=== PATIENT | male | born 1980 | race African-American/Black ===

== ENCOUNTER → 2017-02-08 | Outpatient (CLI) | payer OTHER | END | disposition home or self-care (01) | LOC: LABWHC1 12:45 | PROVIDERS: ATTEND Dermatology MOHS-Micrographic Surgery | DX: L74.510 Primary focal hyperhidrosis, axilla (principal); L29.0 Pruritus ani; L30.1 Dyshidrosis [pompholyx]; R68.82 Decreased libido | CPT/HCPCS: 36415; 84402; 84403; 84443 ==

== ENCOUNTER 2019-10-13 08:43 | Emergency (ER) | payer OTHER ==
[2019-10-13 08:50] VITALS: BP 124/79; PULSE 92; RESP 18; TEMP 98.6
--- NOTE | 2019-10-13 09:16 | ED ---
Psych HPI - General Chief Complaint: Psychiatric Symptoms Stated Complaint: Mental Health Time Seen by Provider: 10/13/19 08:50 Source: patient, RN notes reviewed Mode of arrival: ambulatory Limitations: no limitations - History of Present Illness Initial Comments: This a 39-year-old male presents emergency Department with chief complaint of depression. Patient states he has had depression for as long as he can remember. He states it is not suicidal and has had never had any suicidal ideations. Patient denies any homicidal. Patient states that he once had a concert but states she is late for his appointment so he was told he cannot be seen. Patient states he's never any medications. Denies any physical complaints. He does admit to marijuana use no other drug abuse. Denies any alcohol abuse. Patient states his depression has been worse recently because of a situation and his relationship with his significant other. - Related Data Home Medications Medication Instructions Recorded Confirmed Cetirizine HCl 10 mg PO DAILY 10/07/15 10/13/19 Multivitamins, Thera [Multivitamin 1 tab PO DAILY 10/13/19 10/13/19 (formulary)] Sildenafil Citrate 50 mg PO DAILY 10/13/19 10/13/19 Allergies Allergy/AdvReac Type Severity Reaction Status Date / Time Penicillins AdvReac Rash/Hives Verified 10/13/19 09:25 Review of Systems ROS Statement: Those systems with pertinent positive or pertinent negative responses have been documented in the HPI. ROS Other: All systems not noted in ROS Statement are negative. Past Medical History Past Medical History: No Reported History History of Any Multi-Drug Resistant Organisms: None Reported Past Surgical History: No Surgical Hx Reported Past Anesthesia/Blood Transfusion Reactions: No Reported Reaction Additional Past Anesthesia/Blood Transfusion Reaction / Comment(s): No surgery Smoking Status: Current every day smoker Past Alcohol Use History: Rare Past Drug Use History: Marijuana - Past Family History Mother Family Medical History: No Reported History General Exam Limitations: no limitations General appearance: alert, in no apparent distress Head exam: Present: atraumatic, normocephalic, normal inspection Eye exam: Present: normal appearance, PERRL, EOMI. Absent: scleral icterus, conjunctival injection, periorbital swelling ENT exam: Present: normal exam, normal oropharynx, mucous membranes moist Neck exam: Present: normal inspection, full ROM. Absent: tenderness, meningismus, lymphadenopathy Respiratory exam: Present: normal lung sounds bilaterally. Absent: respiratory distress, wheezes, rales, rhonchi, stridor Cardiovascular Exam: Present: regular rate, normal rhythm, normal heart sounds. Absent: systolic murmur, diastolic murmur, rubs, gallop, clicks Neurological exam: Present: alert, oriented X3, CN II-XII intact, reflexes normal. Absent: motor sensory deficit Psychiatric exam: Present: depressed, flat affect Skin exam: Present: warm, dry, intact, normal color. Absent: rash Course Vital Signs 10/13/19 08:46 Temperature 98.6 F Pulse Rate 92 Respiratory 18 Rate Blood Pressure 124/79 O2 Sat by Pulse 97 Oximetry Medical Decision Making - Medical Decision Making 39-year-old presented for evaluation depression evaluated be passing case discussed with psychiatrist who recommends outpatient treatment patient is not suicidal. Patient was set up with outpatient resources agrees upon discharge. Disposition Clinical Impression: Depression Disposition: HOME SELF-CARE Condition: Stable Instructions (If sedation given, give patient instructions): Depression (ED) Additional Instructions: Please return to the Emergency Department if symptoms worsen or any other concerns. Is patient prescribed a controlled substance at d/c from ED?: No Referrals: Marybel Dietz MD [Primary Care Provider] - 1-2 days Time of Disposition: 12:28
== END 2019-10-13 12:39 | disposition home or self-care (01) ==
LOC: EC 08:43
DX: F32.9 Major depressive disorder, single episode, unspecified (principal); F17.200 Nicotine dependence, unspecified, uncomplicated; F12.90 Cannabis use, unspecified, uncomplicated; Z88.0 Allergy status to penicillin
CPT/HCPCS: 82075; 99284

== ENCOUNTER 2019-12-18 14:32 | Emergency (ER) | payer OTHER ==
[2019-12-18 14:57] VITALS: BP 132/89; PULSE 79; RESP 18; TEMP 99.4
--- NOTE | 2019-12-18 15:05 | ED ---
Skin/Abscess/FB HPI - General Chief complaint: Skin/Abscess/Foreign Body Stated complaint: FB in ear Time Seen by Provider: 12/18/19 15:01 Source: patient Mode of arrival: ambulatory Limitations: no limitations - History of Present Illness Initial comments: Patient is 39-year-old male presenting to the emergency department with a chief complaint of ear foreign body. Patient states this occurred about half hour prior to arrival. Patient states he was cleaning his ear with a Q-tip when he pulled out the plastic piece, he noticed the top cotton part was missing. Patient states she does not have any pain or discharge from the left ear. Patient states there is only concern for foreign body. He denies any auditory changes. Denies any alleviating artery factors. - Related Data Home Medications Medication Instructions Recorded Confirmed Cetirizine HCl 10 mg PO DAILY 10/07/15 10/13/19 Multivitamins, Thera [Multivitamin 1 tab PO DAILY 10/13/19 10/13/19 (formulary)] Sildenafil Citrate 50 mg PO DAILY 10/13/19 10/13/19 Allergies Allergy/AdvReac Type Severity Reaction Status Date / Time Penicillins AdvReac Rash/Hives Verified 12/18/19 14:57 Review of Systems ROS Statement: Those systems with pertinent positive or pertinent negative responses have been documented in the HPI. ROS Other: All systems not noted in ROS Statement are negative. Past Medical History Past Medical History: No Reported History History of Any Multi-Drug Resistant Organisms: None Reported Past Surgical History: No Surgical Hx Reported Past Anesthesia/Blood Transfusion Reactions: No Reported Reaction Additional Past Anesthesia/Blood Transfusion Reaction / Comment(s): No surgery Past Psychological History: No Psychological Hx Reported Smoking Status: Current every day smoker Past Alcohol Use History: Rare Past Drug Use History: Marijuana - Past Family History Mother Family Medical History: No Reported History General Exam Limitations: no limitations General appearance: alert, in no apparent distress Head exam: Present: atraumatic, normocephalic, normal inspection Eye exam: Present: normal appearance, PERRL, EOMI Pupils: Present: normal accommodation ENT exam: Present: normal exam, normal oropharynx, mucous membranes moist, TM's normal bilaterally (No erythema, bulging or puncture to the tympanic membrane bilaterally.), normal external ear exam (No foreign body detected in both ears. No signs of otitis media. No erythema or swelling to the external auditory canal.) Neck exam: Present: normal inspection, full ROM. Absent: tenderness Respiratory exam: Present: normal lung sounds bilaterally. Absent: respiratory distress, wheezes Cardiovascular Exam: Present: regular rate, normal rhythm, normal heart sounds Extremities exam: Present: normal inspection, full ROM. Absent: tenderness Back exam: Present: normal inspection, full ROM. Absent: tenderness Neurological exam: Present: alert, oriented X3, normal gait Psychiatric exam: Present: normal affect, normal mood Skin exam: Present: warm, dry, intact, normal color Course Vital Signs 12/18/19 14:54 Temperature 99.4 F Pulse Rate 79 Respiratory 18 Rate Blood Pressure 132/89 O2 Sat by Pulse 99 Oximetry Medical Decision Making - Medical Decision Making patient is a 39-year-old male presenting to emergency with chief complaint of Q- tip stuck in left ear. Patient was suspecting to have a foreign body in his left ear. On physical exam, no foreign body was detected in the left external auditory canal. No signs of infection of any kind. Return parameters were discussed with patient is understanding and agreeable. Case discussed with physician. Disposition Clinical Impression: Discomfort of left ear Disposition: HOME SELF-CARE Condition: Stable Additional Instructions: Return to emergency department if symptoms worsen. Is patient prescribed a controlled substance at d/c from ED?: No Referrals: Marybel Dietz MD [Primary Care Provider] - 1-2 days Time of Disposition: 15:18
== END 2019-12-18 15:35 | disposition home or self-care (01) ==
LOC: EC 14:32
DX: T16.2XXA Foreign body in left ear, initial encounter (principal); F17.200 Nicotine dependence, unspecified, uncomplicated; Z79.899 Other long term (current) drug therapy; Z88.0 Allergy status to penicillin; X58.XXXA Exposure to other specified factors, initial encounter
CPT/HCPCS: 99282

== ENCOUNTER 2020-09-18 17:06 | Emergency (ER) | payer OTHER ==
[2020-09-18 17:17] VITALS: BP 125/75; PULSE 73; RESP 18; TEMP 98
[2020-09-18] MEDS ORDERED: KETOROLAC 15 MG/ML 1 ML VIAL IM STA (18:36)
--- NOTE | 2020-09-18 18:39 | ED ---
General Adult HPI - General Chief complaint: Back Pain/Injury Stated complaint: Back Pain Time Seen by Provider: 09/18/20 18:03 Source: patient Mode of arrival: ambulatory Limitations: no limitations - History of Present Illness Initial comments: Dictation was produced using [employer] dictation software. please excuse any grammatical, word or spelling errors. Chief Complaint: 40-year-old male presents emergency department for back pain. History of Present Illness: Patient is a 40-year-old male who presents to emergency department for a mild back pain. Patient states that his right lower back. Worse with extension standing up from a sitting position. At rest he does not have any symptoms. Patient had x-rays ordered by his primary care doctor. He has not gotten the results. She had these x-rays 1 hour prior to coming to the emergency room. Patient states he came to the emergency department because he did not feel well to go to work. He also with some symptom relief. Denies any saddle anesthesia. No urinary or stool incontinence. No fevers. The ROS documented in this emergency department record has been reviewed and confirmed by me. Those systems with pertinent positive or negative responses have been documented in the HPI. All other systems are other negative and/or noncontributory. PHYSICAL EXAM: General Impression: Alert and oriented x3, not in acute distress HEENT: Normocephalic atraumatic, extra-ocular movements intact, pupils equal and reactive to light bilaterally, mucous membranes moist. Cardiovascular: Heart regular rate and rhythm Chest: Able to complete full sentences, no retractions, no tachypnea Abdomen: abdomen soft, non-tender, non-distended, no organomegaly Musculoskeletal: Pulses present and equal in all extremities, no peripheral edema Motor: no focal deficits noted Neurological: CN II-XII grossly intact, no focal motor or sensory deficits noted Skin: Intact with no visualized rashes Psych: Normal affect and mood ED course: 40-year-old male presents to muscular skeletal back pain. No injury. No high-risk features. Vital signs upon arrival are within acceptable limits. X-rays which have been reviewed by radiology do not appear to show any acute processes. Patient given IM Toradol. He is given prescription for [place]. Patient given referral to a oncology rep specialist. Told to rest. Work note provided. - Related Data Home Medications Medication Instructions Recorded Confirmed Cetirizine HCl 10 mg PO DAILY 10/07/15 10/13/19 Multivitamins, Thera [Multivitamin 1 tab PO DAILY 10/13/19 10/13/19 (formulary)] Sildenafil Citrate 50 mg PO DAILY 10/13/19 10/13/19 Previous Rx's Medication Instructions Recorded HYDROcodone/APAP 5-325MG [[place] 1 tab PO Q6HR PRN 3 Days #12 tab 09/18/20 5-325] Allergies Allergy/AdvReac Type Severity Reaction Status Date / Time Penicillins AdvReac Rash/Hives Verified 09/18/20 17:17 Review of Systems ROS Statement: Those systems with pertinent positive or pertinent negative responses have been documented in the HPI. ROS Other: All systems not noted in ROS Statement are negative. Past Medical History Past Medical History: No Reported History History of Any Multi-Drug Resistant Organisms: None Reported Past Surgical History: No Surgical Hx Reported Past Anesthesia/Blood Transfusion Reactions: No Reported Reaction Additional Past Anesthesia/Blood Transfusion Reaction / Comment(s): No surgery Past Psychological History: No Psychological Hx Reported Smoking Status: Current every day smoker Past Alcohol Use History: Rare Past Drug Use History: Marijuana - Past Family History Mother Family Medical History: No Reported History General Exam Limitations: no limitations Course Vital Signs 09/18/20 17:14 Temperature 98 F Pulse Rate 73 Respiratory 18 Rate Blood Pressure 125/75 O2 Sat by Pulse 98 Oximetry Disposition Clinical Impression: Back pain Disposition: HOME SELF-CARE Condition: Fair Instructions (If sedation given, give patient instructions): Acute Low Back Pain (ED) Prescriptions: HYDROcodone/APAP 5-325MG [[place] 5-325] 1 tab PO Q6HR PRN 3 Days #12 tab PRN Reason: Severe Pain Is patient prescribed a controlled substance at d/c from ED?: Yes If prescribed controlled substance>3 days was MAPS reviewed?: Prescribed <3 Days Referrals: Stephen Kaba DO [Doctor of Osteopathic Medicine] - 1-2 days
[2020-09-18] MEDS ORDERED: LIDOCAINE 5% PATCH TOPICAL STA (18:43)
== END 2020-09-18 19:05 | disposition home or self-care (01) ==
LOC: EC 17:06
DX: M54.5 Low back pain (principal); F17.200 Nicotine dependence, unspecified, uncomplicated; Z88.0 Allergy status to penicillin
CPT/HCPCS: 96372 ×2; 99283 ×2; J1885

== ENCOUNTER → 2020-09-18 | Outpatient (CLI) | payer OTHER ==
--- NOTE | 2020-09-19 07:36 | XR ---
EXAMINATION TYPE: XR lumbosacral spine min 4V DATE OF EXAM: 09/18/2020 CLINICAL HISTORY: Low back pain TECHNIQUE: Frontal, lateral, and oblique images of the lumbar spine are obtained. COMPARISON: None FINDINGS: There are 5 lumbar type vertebral bodies identified. The lumbar spine shows satisfactory alignment without evidence of acute fracture or dislocation. Vertebral body heights and disk space he ights are within normal limits. The oblique images appear within normal limits. The overlying soft tissue appears unremarkable. IMPRESSION: No acute fracture or dislocation is seen in the lumbar spine.
== END | disposition home or self-care (01) ==
LOC: RADXRMAIN 16:12
PROVIDERS: ATTEND Family Medicine
DX: M54.5 Low back pain (principal)
CPT/HCPCS: 72110

== ENCOUNTER 2020-11-11 17:19 | Emergency (ER) | payer OTHER ==
[2020-11-11 17:24] VITALS: BP 157/92; PULSE 80; RESP 18; TEMP 98.3
[2020-11-11] MEDS ORDERED: DIPH,PERTUS(ACELL)TETVAC-LF 0.5 ML VIAL IM ONE (17:29)
[2020-11-11] MEDS ORDERED: LIDOCAINE 1% INJ 10MG/ML (20 ML MDV) SQ ONE (17:29)
--- NOTE | 2020-11-11 18:47 | ED ---
Wound/Laceration HPI - General Chief Complaint: Wound/Laceration Stated Complaint: Rt Hand Laceration Time Seen by Provider: 11/11/20 17:25 Source: patient, RN notes reviewed Mode of arrival: ambulatory Limitations: no limitations - History of Present Illness Initial Comments: Patient is a 40-year-old male that presents to the emergency department compl aining of right dorsal aspect thumb laceration. He notes that he punched labs prior to arrival. He did not know his tetanus vaccine status. Patient was in no apparent distress or pain while sitting up in bed during the exam interview. Patient was slightly agitated stating that he was frustrated. He denied any other issues or complaints. He did have full range of motion of his thumb. He denied any chest pain first breath headache nausea vomiting diarrhea constipation fever fatigue chills. - Related Data Home Medications Medication Instructions Recorded Confirmed Cetirizine HCl 10 mg PO DAILY 10/07/15 10/13/19 Multivitamins, Thera [Multivitamin 1 tab PO DAILY 10/13/19 10/13/19 (formulary)] Sildenafil Citrate 50 mg PO DAILY 10/13/19 10/13/19 Previous Rx's Medication Instructions Recorded HYDROcodone/APAP 5-325MG [[place] 1 tab PO Q6HR PRN 3 Days #12 tab 09/18/20 5-325] Sulfamethox-Tmp 800-160Mg [Bactrim 1 each PO Q12HR #20 tab 11/11/20 Ds] Allergies Allergy/AdvReac Type Severity Reaction Status Date / Time Penicillins AdvReac Rash/Hives Verified 09/18/20 17:17 Review of Systems ROS Statement: Those systems with pertinent positive or pertinent negative responses have been documented in the HPI. ROS Other: All systems not noted in ROS Statement are negative. Past Medical History Past Medical History: No Reported History History of Any Multi-Drug Resistant Organisms: None Reported Past Surgical History: No Surgical Hx Reported Past Anesthesia/Blood Transfusion Reactions: No Reported Reaction Additional Past Anesthesia/Blood Transfusion Reaction / Comment(s): No surgery Past Psychological History: No Psychological Hx Reported Smoking Status: Current every day smoker Past Alcohol Use History: Rare Past Drug Use History: Marijuana - Past Family History Mother Family Medical History: No Reported History General Exam Limitations: no limitations General appearance: alert, in no apparent distress Head exam: Present: atraumatic, normocephalic, normal inspection Eye exam: Present: normal appearance, PERRL, EOMI. Absent: scleral icterus, conjunctival injection, periorbital swelling Neck exam: Present: normal inspection Respiratory exam: Present: normal lung sounds bilaterally. Absent: respiratory distress, wheezes, rales, rhonchi, stridor Cardiovascular Exam: Present: regular rate, normal rhythm, normal heart sounds. Absent: systolic murmur, diastolic murmur, rubs, gallop, clicks GI/Abdominal exam: Present: soft, normal bowel sounds. Absent: distended, tenderness, guarding, rebound, rigid Extremities exam: Present: normal inspection, full ROM, normal capillary refill. Absent: tenderness, pedal edema, joint swelling, calf tenderness Neurological exam: Present: alert, oriented X3 Psychiatric exam: Present: normal affect, normal mood Skin exam: Present: warm, dry, intact, normal color. Absent: rash Expanded Type of lesion: Present: laceration (To the dorsal aspect of the hand just proximal left thumb approximately 3 cm) Course Vital Signs 11/11/20 17:20 Temperature 98.3 F Pulse Rate 80 Respiratory 18 Rate Blood Pressure 157/92 O2 Sat by Pulse 99 Oximetry Procedures - Laceration Laceration #1 Consent Obtained: verbal consent Indication: laceration Site: hand (Dorsal aspect of right hand just proximal the thumb) Description: flap Depth: simple, single layer Anesthetic Used: lidocaine 1% Anesthesia Technique: local infiltration Pre-repair: irrigated extensively Type of Sutures: nylon Size of Sutures: 5-0 Number of Sutures: 5 Technique: simple, interrupted Patient Tolerated Procedure: well, no complications Medical Decision Making - Medical Decision Making 40-year-old male complaining of laceration of dorsal aspect of the right hand area Tetanus vaccine, lidocaine ordered. Patient tolerated suturing well. Case discussed with Dr. Brown, patient discharge home with follow-up to primary care. Disposition Clinical Impression: Laceration Disposition: HOME SELF-CARE Condition: Stable Instructions (If sedation given, give patient instructions): Laceration (ED), Care For Your Stitches (ED) Additional Instructions: Please return to the Emergency Department if symptoms worsen or any other concerns. Please return in 7-10 days to have sutures removed. Keep areas clean and as dry as possible. Work note given. Follow-up with primary care as needed. Take Tylenol Motrin as needed for pain. Is patient prescribed a controlled substance at d/c from ED?: No Referrals: Marybel Dietz MD [Primary Care Provider] - 1-2 days Time of Disposition: 18:47
== END 2020-11-11 18:57 | disposition home or self-care (01) ==
LOC: EC 17:19
DX: S61.411A Laceration without foreign body of right hand, initial encounter (principal); F17.200 Nicotine dependence, unspecified, uncomplicated; Z88.0 Allergy status to penicillin; W25.XXXA Contact with sharp glass, initial encounter
CPT/HCPCS: 12002; 99284; 90471; 90715; J2001

== ENCOUNTER 2020-12-24 13:23 | Emergency (ER) | payer OTHER ==
[2020-12-24 13:30] VITALS: BP 129/84; PULSE 69; RESP 16; TEMP 98.5
--- NOTE | 2020-12-24 14:13 | ED ---
General Adult HPI - General Chief complaint: Extremity Problem,Nontraumatic Stated complaint: foot & finger pain Time Seen by Provider: 12/24/20 13:30 Source: patient Mode of arrival: ambulatory Limitations: no limitations - History of Present Illness Initial comments: 40-year-old male presents to the emergency room for chief complaint of sores on right foot and a rash on bilateral hands. Has had a rash on his hands for 2 weeks. States sometimes it is itchy. Patient states for quite some time he has had a fungal infection of his feet has been treating this with a clotrimazole cream through his mold filler. Patient is going to bio medical technician but that appointment is not for 2 weeks. Patient states that the blisters on the medial aspect of the right foot is painful. He denies fevers. Patient has no other complaints at this time including shortness of breath, chest pain, abdominal pain, nausea or vomiting, headache, or visual changes. - Related Data Home Medications Medication Instructions Recorded Confirmed Neomycin/Bacitracin/Polymyxinb 1 applic TOPICAL TID PRN 12/24/20 12/24/20 [Neosporin Ointment] Silver Sulfadiazine [SSD 1% Cream] 1 applic TOPICAL DAILY PRN 12/24/20 12/24/20 Previous Rx's Medication Instructions Recorded Doxycycline [Vibramycin] 100 mg PO BID 10 Days #20 cap 12/24/20 Hydrocortisone Cream 1 applic TOPICAL TID 5 Days #28 gm 12/24/20 [Hydrocortisone 1% Cream] Allergies Allergy/AdvReac Type Severity Reaction Status Date / Time Penicillins Allergy Rash/Hives Verified 12/24/20 14:01 Review of Systems ROS Statement: Those systems with pertinent positive or pertinent negative responses have been documented in the HPI. ROS Other: All systems not noted in ROS Statement are negative. Past Medical History Past Medical History: No Reported History History of Any Multi-Drug Resistant Organisms: None Reported Past Surgical History: No Surgical Hx Reported Past Anesthesia/Blood Transfusion Reactions: No Reported Reaction Additional Past Anesthesia/Blood Transfusion Reaction / Comment(s): No surgery Past Psychological History: No Psychological Hx Reported Smoking Status: Current every day smoker Past Alcohol Use History: Rare Past Drug Use History: Marijuana - Past Family History Mother Family Medical History: No Reported History General Exam - General Exam Comments Initial Comments: right foot: patient has vesicular changes medial aspect of the right foot. minimal surrounding erythema. DP Pulse 2+, cap refill < 2 seconds. Bilat hands: papular rash noted on the dorsal consistent with dishydrotic eczema. Limitations: no limitations General appearance: alert, in no apparent distress Head exam: Present: atraumatic Eye exam: Present: normal appearance, PERRL, EOMI. Absent: scleral icterus, conjunctival injection ENT exam: Present: normal exam, mucous membranes moist Neck exam: Present: normal inspection, full ROM. Absent: tenderness Respiratory exam: Present: normal lung sounds bilaterally. Absent: respiratory distress, wheezes Cardiovascular Exam: Present: regular rate, normal rhythm, normal heart sounds GI/Abdominal exam: Present: soft, normal bowel sounds. Absent: distended, tenderness Course Vital Signs 12/24/20 13:27 Temperature 98.5 F Pulse Rate 69 Respiratory 16 Rate Blood Pressure 129/84 O2 Sat by Pulse 100 Oximetry Medical Decision Making - Medical Decision Making Vitals are stable. HPI and physical exam as documented. We will start patient on a steroid cream for the rash on his hands as this is consistent with dyshidrotic eczema. As for the rash on his feet he does have a vesicular rash on the plantar aspect and medial aspects of the feet. Dr. Chester also visualized. At this time we will send syphilis testing and treatment patient with doxycycline just to make sure we are not missing a secondary syphilis. He will still need to follow-up with bio medical technician as soon as possible. Disposition Clinical Impression: Rash Disposition: HOME SELF-CARE Condition: Good Instructions (If sedation given, give patient instructions): Acute Rash (ED) Additional Instructions: Please apply a steroid cream to affected areas of the hands as directed. In the meantime take antibiotics as directed and keep feet dry as possible. Follow-up with bio medical technician as soon as possible. Return for any worsening symptoms. Prescriptions: Hydrocortisone Cream [Hydrocortisone 1% Cream] 1 applic TOPICAL TID 5 Days #28 gm Doxycycline [Vibramycin] 100 mg PO BID 10 Days #20 cap Is patient prescribed a controlled substance at d/c from ED?: No Referrals: Marybel Dietz MD [Primary Care Provider] - 1-2 days Jim Kate MD [STAFF PHYSICIAN] - 1-2 days Time of Disposition: 14:21
[2020-12-24] MEDS ORDERED: CEPHALEXIN 500MG STARTER PACK 4 CAP BTL PO STA (14:19)
[2020-12-24] MEDS ORDERED: DOXYCYCLINE 100 MG CAP PO STA (14:29)
--- NOTE | 2020-12-24 15:01 | XR ---
EXAMINATION TYPE: XR finger RT DATE OF EXAM: 12/24/2020 COMPARISON: NONE HISTORY: 40-year-old male second finger pain after injury TECHNIQUE: 3 views coned down right second finger FINDINGS: No acute fracture, subluxation, dislocation. There is a prominent nutrient foramen along the radial s ided cortex of the proximal phalangeal shaft. No acute fracture, subluxation, or dislocation. There i s slight flexion at the PIP joint while there is slight extension at the DIP joint. IMPRESSION: 1. Slight flexion PIP joint and slight extension DIP joint. This may be positional. Correlate to excl ude a subtle boutonniere's deformity. 2. Otherwise, no acute osseous abnormality seen.
== END 2020-12-24 15:17 | disposition home or self-care (01) ==
LOC: EC 13:23
DX: R21 Rash and other nonspecific skin eruption (principal); M79.671 Pain in right foot; M79.645 Pain in left finger(s); M79.644 Pain in right finger(s); F17.200 Nicotine dependence, unspecified, uncomplicated; Z88.0 Allergy status to penicillin
CPT/HCPCS: 36415; 86780; 99283

== ENCOUNTER → 2022-07-06 | Outpatient (CLI) | payer OTHER ==
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
--- NOTE | 2022-07-06 18:19 | XR ---
EXAMINATION TYPE: XR tibia fibula RT DATE OF EXAM: 07/06/2022 5:29 PM INDICATION: Patient age:Male; 42 years old; Reason for study: S89.91XA UNSPECIFIED INJURY OF RIGHT LOWER EXTREMITY; COMPARISON: None TECHNIQUE: The right tibia/fibula was examined in AP and lateral projections. FINDINGS: No evidence of any acute osseous pathology, joint dislocation, or soft tissue swelling is n oted. IMPRESSION: No evidence of acute fracture.
== END | disposition home or self-care (01) ==
LOC: RADUSWWP 16:45
PROVIDERS: ATTEND Family Medicine
DX: S89.91XA Unspecified injury of right lower leg, initial encounter (principal); M79.604 Pain in right leg

== ENCOUNTER → 2024-01-18 | Outpatient (CLI) | payer OTHER ==
--- NOTE | 2024-01-18 09:38 | XR ---
EXAMINATION TYPE: XR chest 2V DATE OF EXAM: 01/18/2024 9:16 AM CLINICAL INDICATION: Male, 43 years old with history of F17.200 NICOTINE DEPENDENCE, UNSPECIFI R63.4 R05.8; [facility] COMPARISON: None TECHNIQUE: XR chest 2V Frontal view of the chest. FINDINGS: Lungs/Pleura: There is no evidence of pleural effusion, focal consolidation, or pneumothorax. Pulmonary vascularity: Unremarkable. Heart/mediastinum: Cardiomediastinal silhouette is unremarkable. Musculoskeletal: No acute osseous pathology. Other findings: None IMPRESSION: No acute cardiopulmonary disease/process. [facility], , 01/18/2024 9:35 AM
== END ==
LOC: RADXRMAIN 09:07
PROVIDERS: ATTEND Family Medicine
CPT/HCPCS: 71046

== ENCOUNTER → 2024-01-19 | Outpatient (CLI) | payer OTHER ==
--- NOTE | 2024-01-19 11:21 | US ---
EXAMINATION TYPE: US abdomen comp/pelvis limited DATE OF EXAM: 01/19/2024 COMPARISON: NONE CLINICAL INDICATION: Male, 43 years old with history of R63.4 WEIGHT LOSS; unintentional weight loss TECHNIQUE: Grayscale color Doppler imaging of the abdomen and pelvis. FINDINGS: EXAM MEASUREMENTS: Liver Length: 17.8 cm Gallbladder Wall: 0.2 cm CBD: 0.2 cm Spleen: 9.9 cm Right Kidney: 11.1 x 5.2 x 5.5 cm Left Kidney: 12.3 x 6.3 x 5.5 cm Technical limitations due to large amount of overlying bowel gas Pancreas: Obscured by bowel gas Liver: wnl as visualized Gallbladder: no evidence of stones CBD: appears wnl Spleen: appears wnl Right Kidney: no evidence of hydronephrosis Left Kidney: no evidence of hydronephrosis Upper IVC: wnl Abd Aorta: proximal obscured by overlying bowel gas, visualized portions appear wnl Bladder: appears wnl Bilateral Jets Seen no The pancreas is obscured by overlying bowel gas. The visualized liver is unremarkable without evidenc e of cirrhosis or focal lesion. Gallbladder demonstrates no wall thickening, calculi, or surrounding fluid. Common bile duct is within normal limits. Spleen is unremarkable. Both kidneys demonstrate no hydronephrosis, nephrolithiasis, or solid mass. The visualized upper IVC is within normal limits. The visualized portions of the abdominal aorta are within normal limits. The proximal portion is obscure d by overlying bowel gas. Urinary bladder appears within normal limits. Bilateral ureteral jets are n ot identified. Mildly prominent prostate gland measuring 4.1 cm in diameter. IMPRESSION: No ultrasound evidence for an acute process. [facility], , 01/19/2024 11:19 AM
== END | disposition home or self-care (01) ==
LOC: RADUSWWP 07:15
PROVIDERS: ATTEND Family Medicine
DX: R63.4 Abnormal weight loss (principal)
CPT/HCPCS: 76700; 76857

== ENCOUNTER → 2024-02-07 | Outpatient (CLI) | payer OTHER ==
--- NOTE | 2024-02-08 19:06 | CT ---
EXAMINATION TYPE: CT abdomen pelvis w con DATE OF EXAM: 02/07/2024 COMPARISON: None INDICATION: Abnormal weight loss DLP: 753.9 mGycm, Automated exposure control for dose reduction was used. CONTRAST: 100 ml mL of Isovue 300. Study performed with Oral Contrast TECHNIQUE: Axial images were obtained from above the diaphragm to the pubic rami in the axial plane a t 5 mm thick sections. Reconstructed images are reviewed on the computer in the coronal plane. FINDINGS: Limited CT sections are obtained the lung bases. The lung bases are clear. CT ABDOMEN: Liver: Normal Spleen: Normal Pancreas: There is a hypodense mass at the tail of the pancreas measuring 3.4 cm in size. This may diaz ve a punctate area of enhancement centrally. Workup for pancreatic cancer is recommended. Adrenal glands: The adrenal glands are normal. Gallbladder: Normal Kidneys: No masses are evident. No hydronephrosis is present. No cysts are present. Delayed images were obtained through the kidneys, which remain unremarkable. Aorta: Normal Inferior vena cava: Normal. CT PELVIS: Loops of bowel within the abdomen and pelvis are normal. There are loops of bowel which are incom pletely distended or lack oral contrast limiting their evaluation. Appendix: Not identified. No dilated tubular structure or inflammatory change is evident. Urinary bladder: Normal. Genitourinary structures: Osseous structures: Prostate appears unremarkable IMPRESSION: 1. 3.4 cm hypodense mass at the tail of the pancreas. Workup for neoplasm recommended. [facility], , 02/08/2024 7:04 PM
== END | disposition home or self-care (01) ==
LOC: RADCTMAIN 16:23
PROVIDERS: ATTEND Family Medicine
DX: K86.9 Disease of pancreas, unspecified (principal); R63.4 Abnormal weight loss
CPT/HCPCS: 74177; Q9967